=== PATIENT | male | born 1995 | race Asian ===

== ENCOUNTER 2017-07-13 20:53 | Emergency (ER) | payer BC ==
[~2017-07-13] VITALS: Ht 188 cm; Wt 94.3 kg
[2017-07-13 22:39] VITALS: BP 140/73
== END 2017-07-13 22:40 | disposition home or self-care (01) ==
LOC: ED 20:53
DX: R07.89 Other chest pain (principal); F41.9 Anxiety disorder, unspecified; Z88.6 Allergy status to analgesic agent
CPT/HCPCS: Q0092